=== PATIENT | male | born 1960 | race Caucasian/White ===

== ENCOUNTER 2019-11-17 05:35 | Emergency (ER) | payer BC ==
[2019-11-17] MEDS ORDERED: Metoclopramide 10 MG/2 ML SDV IVPUSH ONE (05:59)
[2019-11-17] MEDS ORDERED: Sodium Chloride 0.9% 1,000 ML IV SCH (06:00)
--- NOTE | 2019-11-17 06:08 | EDM.PDOC ---
ED HPI GENERAL MEDICAL PROBLEM - General Chief Complaint: Wound Recheck Stated Complaint: SURGERY 10 DAYS AGO/INFECTION Time Seen by Provider: 11/17/19 06:02 Source of Information: Reports: Patient, Family History Limitations: Reports: No Limitations - History of Present Illness INITIAL COMMENTS - FREE TEXT/NARRATIVE: spouse states pt s/p surgery PAD 8-4 and has been fine till Monday 6 days ago started feeling hot feverish then been vomiting everything but no diarrhoea. did eat some pizza last without vomiting. spouse worried re infection. Lower Abdomen Pain Score (Numeric/FACES): 4 - Related Data Allergies Allergy/AdvReac Type Severity Reaction Status Date / Time No Known Allergies Allergy Verified 11/17/19 06:09 Home Meds: Home Meds Clopidogrel Bisulfate [Clopidogrel] 75 mg PO DAILY 11/17/19 [History] Empagliflozin [Jardiance] 25 mg PO DAILY 11/17/19 [History] Escitalopram Oxalate 10 mg PO DAILY 11/17/19 [History] Irbesartan 300 mg PO DAILY 11/17/19 [History] Omeprazole 20 mg PO DAILY 11/17/19 [History] Ozempic 1 mg SQ WEEKLY 11/17/19 [History] Pioglitazone HCl 30 mg PO DAILY 11/17/19 [History] atorvaSTATin Calcium [Atorvastatin Calcium] 40 mg PO DAILY 11/17/19 [History] hydroCHLOROthiazide [Hydrochlorothiazide] 25 mg PO DAILY 11/17/19 [History] metFORMIN HCl [Metformin HCl] 500 mg PO BID 11/17/19 [History] Past Medical History Other Cardiovascular History: PAD Gastrointestinal History: Reports: GERD Endocrine/Metabolic History: Reports: Diabetes, Type II - Past Surgical History Other Cardiovascular Surgeries/Procedures: Stent palcement to the right leg on November 05, 2019 Social & Family History - Family History Family Medical History: Noncontributory - Tobacco Use Smoking Status *Q: Current Every Day Smoker Years of Tobacco use: 40 Packs/Tins Daily: 2.5 - Caffeine Use Caffeine Use: Reports: Soda - Alcohol Use Date of Last Drink: 11/07/19 - Recreational Drug Use Recreational Drug Use: No ED ROS GENERAL - Review of Systems Review Of Systems: Comprehensive ROS is negative, except as noted in HPI. ED EXAM, GENERAL - Physical Exam Exam: See Below Exam Limited By: No Limitations General Appearance: Alert, WD/WN, No Apparent Distress Ears: Hearing Grossly Normal Throat/Mouth: Normal Voice, No Airway Compromise Head: Atraumatic Neck: Non-Tender, Full Range of Motion Respiratory/Chest: No Respiratory Distress Cardiovascular: Regular Rate, Rhythm GI/Abdominal: Soft, Tender (epigastric area discomfort) Extremities: Other (no s/s cellulitis, surgical site good. no discolouration noted, NV wnl, ) Neurological: Alert, Oriented, Normal Cognition, Normal Gait, Slow to Respond Psychiatric: Normal Affect, Normal Mood Skin Exam: Warm, Dry, Normal Color Lymphatic: No Adenopathy Course - Vital Signs Last Recorded V/S: Last Vital Signs Temp 36.2 C 11/17/19 05:41 Pulse 85 11/17/19 05:41 Resp 19 11/17/19 05:41 BP 130/85 11/17/19 05:41 Pulse Ox 100 11/17/19 05:41 - Orders/Labs/Meds Labs: Laboratory Tests 11/17/19 11/17/19 11/17/19 Range/Units 05:46 06:07 06:07 WBC 12.2 H (5.0-10.0) 10^3/uL RBC 6.27 H (4.6-6.2) 10^6/uL Hgb 18.1 H (14.0-18.0) g/dL Hct 51.4 (40.0-54.0) % MCV 82.0 (80-100) fL MCH 28.9 (27.0-34.0) pg MCHC 35.2 H (33.0-35.0) g/dL Plt Count 282 (150-450) 10^3/uL Neut % (Auto) 70.3 (42.2-75.2) % Lymph % (Auto) 19.2 L (20.5-50.1) % [place] % (Auto) 7.8 (2-8) % Eos % (Auto) 2.4 (1.0-3.0) % Baso % (Auto) 0.3 (0.0-1.0) % Sodium 129 L (136-145) mmol/L Potassium 3.0 L (3.5-5.1) mmol/L Chloride 90 L (98-107) mmol/L Carbon Dioxide 27 (21-32) mmol/L Anion Gap 15.0 H (7-13) mEq/L BUN 21 H (7-18) mg/dL Creatinine 1.38 H (0.70-1.30) mg/dL Est Cr Clr Drug Dosing 60.25 mL/min Estimated GFR (MDRD) 53 BUN/Creatinine Ratio 15.2 (No establ ref range) Glucose 223 H (74-99) mg/dL Lactic Acid (0.4-2.0) mmol/L Calcium 8.8 (8.5-10.1) mg/dL Total Bilirubin 0.7 (0.2-1.0) mg/dL AST 13 L (15-37) U/L ALT 33 (16-63) U/L Alkaline Phosphatase 160 H (46-116) U/L Total Protein 7.8 (6.4-8.2) g/dL Albumin 4.1 (3.4-5.0) g/dL Globulin 3.7 Albumin/Globulin Ratio 1.1 Amylase 49 (25-115) U/L Lipase 264 (73-393) U/L Urine Color Dark yellow (YELLOW) Urine Appearance Clear (CLEAR) Urine pH 5.5 (5.0-9.0) Ur Specific [place] 1.010 (1.005-1.030) Urine Protein Negative (NEGATIVE) Urine Glucose (UA) >=1000 H (NEGATIVE) Urine Ketones Negative (NEGATIVE) Urine Occult Blood Negative (NEGATIVE) Urine Nitrite Negative (NEGATIVE) Urine Bilirubin Negative (NEGATIVE) Urine Urobilinogen 0.2 (0.2-1.0) mg/dL Ur Leukocyte Esterase Negative (NEGATIVE) 11/17/19 Range/Units 06:07 WBC (5.0-10.0) 10^3/uL RBC (4.6-6.2) 10^6/uL Hgb (14.0-18.0) g/dL Hct (40.0-54.0) % MCV (80-100) fL MCH (27.0-34.0) pg MCHC (33.0-35.0) g/dL Plt Count (150-450) 10^3/uL Neut % (Auto) (42.2-75.2) % Lymph % (Auto) (20.5-50.1) % [place] % (Auto) (2-8) % Eos % (Auto) (1.0-3.0) % Baso % (Auto) (0.0-1.0) % Sodium (136-145) mmol/L Potassium (3.5-5.1) mmol/L Chloride (98-107) mmol/L Carbon Dioxide (21-32) mmol/L Anion Gap (7-13) mEq/L BUN (7-18) mg/dL Creatinine (0.70-1.30) mg/dL Est Cr Clr Drug Dosing mL/min Estimated GFR (MDRD) BUN/Creatinine Ratio (No establ ref range) Glucose (74-99) mg/dL Lactic Acid 3.5 H* (0.4-2.0) mmol/L Calcium (8.5-10.1) mg/dL Total Bilirubin (0.2-1.0) mg/dL AST (15-37) U/L ALT (16-63) U/L Alkaline Phosphatase (46-116) U/L Total Protein (6.4-8.2) g/dL Albumin (3.4-5.0) g/dL Globulin Albumin/Globulin Ratio Amylase (25-115) U/L Lipase (73-393) U/L Urine Color (YELLOW) Urine Appearance (CLEAR) Urine pH (5.0-9.0) Ur Specific [place] (1.005-1.030) Urine Protein (NEGATIVE) Urine Glucose (UA) (NEGATIVE) Urine Ketones (NEGATIVE) Urine Occult Blood (NEGATIVE) Urine Nitrite (NEGATIVE) Urine Bilirubin (NEGATIVE) Urine Urobilinogen (0.2-1.0) mg/dL Ur Leukocyte Esterase (NEGATIVE) Meds: Medications Discontinued Medications Generic Name Dose Route Start Last Admin Trade Name Kyleq PRN Reason Stop Dose Admin Sodium Chloride 1,000 mls @ 500 mls/hr 11/17/19 06:00 11/17/19 06:09 Normal Saline IV 500 mls/hr ASDIRECTED MICHAEL Administration Metoclopramide HCl 10 mg 11/17/19 05:59 11/17/19 06:10 Reglan IVPUSH 11/17/19 06:00 10 mg ONETIME ONE Administration Pantoprazole Sodium 40 mg 11/17/19 06:34 11/17/19 06:42 Protonix Iv IVPUSH 11/17/19 06:35 40 mg ONETIME ONE Administration Potassium Chloride 40 meq 11/17/19 06:33 11/17/19 06:44 Klor-Con 10 PO 11/17/19 06:34 40 meq ONETIME ONE Administration Departure - Departure Time of Disposition: 07:20 Disposition: Home, Self-Care 01 Condition: Good Clinical Impression: Gastroenteritis, Hyponatremia, Hypokalemia, Dehydration syndrome - Discharge Information Instructions: Nausea and Vomiting, Adult, [id number] Forms: ED Department Discharge Additional Instructions: 1) avoid solid foods next 48 hours 2) have liquids, jello 3) follow up with family doctor 4) return if there is any change or concern rx givne; reglan 10mg bid prn nausea x 6 Sepsis Event Note (ED) - Evaluation Sepsis Screening Result: No Definite Risk
[2019-11-17] MEDS ORDERED: Potassium Chloride 10 MEQ Tab.ER PO ONE (06:33)
[2019-11-17] MEDS ORDERED: Pantoprazole 40 MG Vial IVPUSH ONE (06:34)
== END 2019-11-17 07:20 | disposition home or self-care (01) ==
LOC: DL.ED 05:35
DX: K52.9 Noninfective gastroenteritis and colitis, unspecified (principal); E87.1 Hypo-osmolality and hyponatremia; E86.0 Dehydration; E87.6 Hypokalemia; K21.9 Gastro-esophageal reflux disease without esophagitis; E11.51 Type 2 diabetes mellitus with diabetic peripheral angiopathy without gangrene; F17.210 Nicotine dependence, cigarettes, uncomplicated; Z79.84 Long term (current) use of oral hypoglycemic drugs; Z79.02 Long term (current) use of antithrombotics/antiplatelets; Z79.899 Other long term (current) drug therapy
CPT/HCPCS: 36415; 80053; 81003; 82150; 83605; 83690; 85025; 96361; 96374; 96375; 99284; A9270; C9113; J2765; J7030

== ENCOUNTER 2021-11-27 13:27 | Emergency (ER) | payer BC, OTHER ==
[2021-11-27] MEDS ORDERED: predniSONE 20 MG Tab PO ONE (13:28)
[2021-11-27] MEDS ORDERED: Cyclobenzaprine 10 MG Tab PO ONE (13:28)
[2021-11-27] MEDS ORDERED: Orphenadrine 60 MG/2 ML Inj IM ONE (14:34)
[2021-11-27] MEDS ORDERED: methylPREDNISolone Sodium Succinate 125 MG/2 ML SDV IM ONE (14:34)
[2021-11-27] MEDS ORDERED: Cyclobenzaprine 10 MG Tab ONE (16:56)
[2021-11-27] MEDS ORDERED: predniSONE 20 MG Tab ONE (16:56)
== END 2021-11-27 17:11 | disposition home or self-care (01) ==
LOC: DL.ED 13:27
DX: M50.30 Other cervical disc degeneration, unspecified cervical region (principal); K21.9 Gastro-esophageal reflux disease without esophagitis; E11.9 Type 2 diabetes mellitus without complications; Z79.899 Other long term (current) drug therapy; Z79.84 Long term (current) use of oral hypoglycemic drugs
CPT/HCPCS: 72040; 96372; 99283; 99284; A9270-GY; J2360; J2930; J7512

== ENCOUNTER 2022-08-05 06:30 | Day surgery (SDC) | payer OTHER ==
[~2022-08-05 06:30] MED LIST: Dextrose 5%-0.45% NaCl 1,000 ML IV SCH; Midazolam 1 MG/ML 2 ML SDV ONE; Sodium Chloride 0.9% 10 ML Syringe FLUSH PRN; Sodium Chloride 0.9% 10 ML Syringe FLUSH SCH; fentaNYL 100 MCG/2 ML SDV ONE
[2022-08-05] MEDS ORDERED: Midazolam 1 MG/ML 2 ML SDV IV ONE ×3 (06:31→07:16)
[2022-08-05] MEDS ORDERED: fentaNYL 100 MCG/2 ML SDV IV ONE ×3 (06:31→07:15)
== END 2022-08-05 08:40 | disposition home or self-care (01) ==
LOC: DL.ENDO 06:30
PROVIDERS: ATTEND Internal Medicine Gastroenterology
DX: K29.50 Unspecified chronic gastritis without bleeding (principal); K63.89 Other specified diseases of intestine; K21.9 Gastro-esophageal reflux disease without esophagitis; E66.01 Morbid (severe) obesity due to excess calories; J44.9 Chronic obstructive pulmonary disease, unspecified; E11.9 Type 2 diabetes mellitus without complications; I10 Essential (primary) hypertension; E78.5 Hyperlipidemia, unspecified; I73.9 Peripheral vascular disease, unspecified; N52.9 Male erectile dysfunction, unspecified; I25.10 Atherosclerotic heart disease of native coronary artery without angina pectoris; Z95.5 Presence of coronary angioplasty implant and graft; Z90.89 Acquired absence of other organs; Z98.890 Other specified postprocedural states; R94.5 Abnormal results of liver function studies; Z68.35 Body mass index [BMI] 35.0-35.9, adult
CPT/HCPCS: 87077; J2250; J3010; J7042